=== PATIENT | male | born 1965 | race African-American/Black ===

== ENCOUNTER 2018-12-30 11:24 | Emergency (ER) | payer MEDICARE, MEDICAID ==
[~2018-12-30] VITALS: Ht 172.7 cm; Wt 64.7 kg
[2018-12-30 11:29] VITALS: BP 150/104
[2018-12-30] MEDS ORDERED: LIDOCAINE-MPF 1%, 5ML ONE (11:55)
[2018-12-30] MEDS ORDERED: LORazepam 1MG TABLET ONE (11:55)
[2018-12-30] MEDS ORDERED: LORazepam 1MG TABLET PO ONE (12:00)
[2018-12-30] MEDS ORDERED: LIDOCAINE-MPF 1%, 5ML INFIL ONE (12:00)
== END 2018-12-30 12:56 | disposition home or self-care (01) ==
LOC: ED 12:50
DX: L02.31 Cutaneous abscess of buttock (principal); F17.210 Nicotine dependence, cigarettes, uncomplicated
CPT/HCPCS: 10060; 99283

== ENCOUNTER 2018-12-30 14:35 | Emergency (ER) | payer MEDICARE, MEDICAID ==
[~2018-12-30] VITALS: Ht 170.2 cm; Wt 66.9 kg
--- NOTE | 2018-12-30 14:49 | NUR ---
NO ANSWER IN THE LOBBY AT THIS TIME.
--- NOTE | 2018-12-30 14:57 | NUR ---
NO ANSWER IN LOBBY AT THIS TIME.
[2018-12-30 15:01] VITALS: BP 135/94
--- NOTE | 2018-12-30 16:00 | NUR ---
PT SLEEPING ON GURNEY, NAD WITH EQUAL CHEST RISE/FALL, NO NEEDS AT THIS TIME, CALL LIGHT WITHIN REACH, AWAITING SW CONSULT.
--- NOTE | 2018-12-30 16:50 | NUR ---
DARRYL (SETH) AWARE OF CONSULT ORDER, WILL BE DOWN TO SEE PT LAURA- ERP & SCREENING UNIT REGISTERED NURSE AWARE.
--- NOTE | 2018-12-30 17:01 | NUR ---
SW AT FOR CONSULT.
--- NOTE | 2018-12-30 17:47 | NUR ---
Patient given discharge instructions and they have confirmed that they understand the instructions. Patient ambulatory with steady gait. taxi voucher given by
== END 2018-12-30 17:47 | disposition home or self-care (01) ==
LOC: ED 17:40
DX: L02.31 Cutaneous abscess of buttock (principal)
CPT/HCPCS: 99283